=== PATIENT | female | born 1985 | race Caucasian/White ===

== ENCOUNTER 2016-08-05 23:16 | Emergency (ER) | payer MEDICAID, OTHER ==
[~2016-08-05] VITALS: Ht 165.1 cm; Wt 65.8 kg
[2016-08-05 23:36] VITALS: BP 126/78
== END 2016-08-06 04:45 | disposition left against medical advice (07) ==
LOC: ER 23:16
DX: R55 Syncope and collapse (principal); N39.0 Urinary tract infection, site not specified; Z53.21 Procedure and treatment not carried out due to patient leaving prior to being seen by health care provider